=== PATIENT | male | born 1930 | race Two or more races ===

== ENCOUNTER 2019-04-12 07:30 | Emergency (ER) | payer MEDICARE, MEDICAID ==
[~2019-04-12] VITALS: Ht 162.6 cm; Wt 68.0 kg
[~2019-04-12 07:30] MED LIST: AVALIDE PO; BACL10TA PO; GABA300C10 PO; NIASPAN PO; OLME40TA9 OR; TRAM-411; TRAM50TA2 PO
[2019-04-12 08:22] LABS: Urine WBC None Seen /hpf (0 - 3)
[2019-04-12 08:33] LABS: Urine Bacteria NONE SEEN /hpf (None Seen); Urine Blood Negative /uL (Negative); Urine Specific Gravity 1.012 (1.001-1.035)
[2019-04-12] MEDS ORDERED: ONDANSETRON HCL 4 MG/2 ML VIAL IV ONE (09:15)
[2019-04-12] MEDS ORDERED: MORPHINE SULF INJ 2 MG/ML SYRINGE 1ML IV ONE (09:15)
[2019-04-12 10:20] VITALS: BP 150/84
== END 2019-04-12 11:23 | disposition home or self-care (01) ==
LOC: ER 07:30 → EDBD 07:30 → ER 11:23
DX: M25.551 Pain in right hip (principal); M79.604 Pain in right leg; I10 Essential (primary) hypertension; Z86.73 Personal history of transient ischemic attack (TIA), and cerebral infarction without residual deficits
CPT/HCPCS: 73502; 73700; 81001; 93971; 96374; 96375; 99285; J2270; J2405